=== PATIENT | male | born 1970 | race Caucasian/White ===

== ENCOUNTER 2018-01-27 16:21 | Emergency (ER) | payer BC ==
[~2018-01-27] VITALS: Ht 175.3 cm; Wt 95.3 kg
[~2018-01-27 16:21] MED LIST: CELEBREX 200 M200 M1; FENOFIBRATE145 M1; FLEXERIL PO; HYDROCODON-ACE1 EAC5 PO; HYDROCODON-ACE1 EAC7 PO; HYDROCODONE-AP1 EAC6 PO; IBUPROFEN 600600 M1 PO; IBUPROFEN 800800 M1 PO; INDOMETHACIN 5050 MG PO; KEFLEX500 MG PO; LISINOPRIL40 MG PO; LORTAB 5-325 M1 EACH PO; MEDROLDOSEPACK PO; NAPROSYN375 MG PO; NAPROSYN500 MG PO; NORCO 5-325 TA1 EAC1 PO; NORCO 5-325 TA1 EACH PO; PREDNISONE 10 M10 M1 PO; PREDNISONE 20 M20 MG PO
[2018-01-27] MEDS ORDERED: ADDERALL 15 MG15 MG PO (16:39)
[2018-01-27] MEDS ORDERED: ZANAFLEX4 MG PO (16:52)
[2018-01-27] MEDS ORDERED: NAPROSYN500 MG PO (16:52)
[2018-01-27] MEDS ORDERED: MEDROLDOSEPACK PO (16:52)
== END 2018-01-27 17:00 | disposition home or self-care (01) ==
LOC: M.ERS 16:21
DX: M54.16 Radiculopathy, lumbar region (principal); I10 Essential (primary) hypertension; E78.00 Pure hypercholesterolemia, unspecified; F90.9 Attention-deficit hyperactivity disorder, unspecified type; F17.200 Nicotine dependence, unspecified, uncomplicated; Z98.890 Other specified postprocedural states; Z96.652 Presence of left artificial knee joint

== ENCOUNTER 2018-06-07 18:26 | Inpatient (IN) | payer BC ==
[~2018-06-07] VITALS: Ht 175.3 cm; Wt 86.6 kg
[~2018-06-07 18:26] MED LIST changes: +ADDERALL 15 MG15 MG PO; +ZANAFLEX4 MG PO
[2018-06-07 18:34] VITALS: BP 125/74
[2018-06-07] MEDS ORDERED: NORCO 7.5-3251 EACH PO (18:36)
[2018-06-07 18:56] LABS: ABSOLUTE BASOPHILS 0.1 thou/uL (0.0-0.2); ABSOLUTE EOSINOPHILS 0.1 thou/uL (0.0-0.7); ABSOLUTE LYMPHOCYTES 1.9 thou/uL (0.8-5.3); ABSOLUTE MONOCYTES 1.3 thou/uL (0.0-1.2); ABSOLUTE NEUTROPHILS 10.6 thou/uL (1.6-8.1); BASOPHILS 0.5 %; EOSINOPHILS 0.7 %; HEMATOCRIT 49.1 % (42.0-52.0); HEMOGLOBIN 16.8 gm/dL (14.0-18.0); LYMPHOCYTES 13.8 %; MCH 30.9 pg (26.0-34.0); MCHC 34.2 g/dL (28.0-37.0); MCV 90.4 fL (80.0-100.0); MONOCYTES 9.4 %; NUCLEATED RBCS 0 /100WBC; PLATELET COUNT* 263 thou/uL (150-400); POLYS 75.6 %; RBC 5.43 mil/uL (4.50-6.00)
[2018-06-07 19:05] LABS: CALCIUM 10.7 mg/dL (8.5-10.1); POTASSIUM 4.1 mmol/L (3.5-5.1)
[2018-06-07 19:17] LABS: ALBUMIN 4.5 g/dL (3.4-5.0); TOTAL BILIRUBIN 0.7 mg/dL (<0.1-1.0); TOTAL PROTEIN 7.8 g/dL (6.4-8.2)
[2018-06-07 20:27] LABS: URINE BILIRUBIN NEGATIVE (Negative); URINE BLOOD NEGATIVE (Negative); URINE CLARITY CLEAR; URINE COLOR YELLOW; URINE GLUCOSE-RANDOM NEGATIVE (Negative); URINE KETONES NEGATIVE (Negative); URINE LEUKOCYTES-REFLEX NEGATIVE (Negative); URINE NITRITE-REFLEX NEGATIVE (Negative); URINE PROTEIN NEGATIVE (Negative); URINE SPECIFIC GRAVITY <= 1.005 (1.005-1.030); URINE UROBILINOGEN 0.2 E.U./dl (0.2-1.0)
[2018-06-07 21:41] VITALS: BP 119/68
[2018-06-07 22:30] VITALS: BP 134/79
[2018-06-08 05:40] LABS: HEMATOCRIT 47.3 % (42.0-52.0); MCHC 33.8 g/dL (28.0-37.0); MCV 91.8 fL (80.0-100.0); MPV 7.2 fl. (7.2-11.1); RBC 5.15 mil/uL (4.50-6.00); RDW-CV 13.3 % (10.5-14.5)
[2018-06-08 06:06] LABS: ALBUMIN 3.7 g/dL (3.4-5.0); CALCIUM 10.4 mg/dL (8.5-10.1); CREATININE 1.2 mg/dL (0.6-1.3); POTASSIUM 4.2 mmol/L (3.5-5.1); TOTAL BILIRUBIN 0.8 mg/dL (<0.1-1.0); TOTAL PROTEIN 6.3 g/dL (6.4-8.2)
[2018-06-08 08:57] VITALS: BP 128/80
[2018-06-08 17:49] VITALS: BP 124/76
[2018-06-08 20:00] VITALS: BP 107/64
[2018-06-09 01:16] VITALS: BP 91/45
[2018-06-09 05:01] VITALS: BP 98/56
[2018-06-09 08:36] VITALS: BP 107/55
[2018-06-09 09:20] VITALS: BP 107/55
[2018-06-09] MEDS ORDERED: MIRALAX17 GM PO (09:20)
== END 2018-06-09 10:00 | disposition home or self-care (01) | DRG 390 ==
LOC: M.ERS 18:26 → M.ORTHSURG 20:14 → M.TBA-ER 20:14 → M.ORTHSURG 21:43
PROVIDERS: Family Medicine; Nurse Practitioner Family; ADMIT Internal Medicine
DX: K56.600 Partial intestinal obstruction, unspecified as to cause (principal); G89.29 Other chronic pain; I10 Essential (primary) hypertension; E78.00 Pure hypercholesterolemia, unspecified; F17.220 Nicotine dependence, chewing tobacco, uncomplicated; K59.09 Other constipation; Z79.2 Long term (current) use of antibiotics; Z79.899 Other long term (current) drug therapy